=== PATIENT | female | born 1990 | race American Indian/Alaskan Native ===

== ENCOUNTER 2017-01-05 12:59 | Emergency (ER) | payer MEDICAID ==
[2017-01-05 15:07] LABS: Basophils % (Auto) 0.4 % (0.0-1.8); Eosinophils % (Auto) 1.5 % (0.0-4.3); Hematocrit 32.1 % (30.3-42.9); Hemoglobin 10.2 gm/dl (10.1-14.3); Mean Corpuscular HGB Conc 32 % (30-34); Mean Corpuscular Hemoglobin 29 pg (28-32); Mean Corpuscular Volume 90 fl (79-97); Platelet Count 194 K/mm3 (140-440); Red Blood Count 3.56 M/mm3 (3.65-5.03); Red Cell Distribution Width 16.1 % (13.2-15.2); White Blood Count 7.7 K/mm3 (4.5-11.0)
[2017-01-05 15:18] LABS: Alanine Aminotransferase 17 units/L (7-56); Albumin 4.1 g/dL (3.9-5); Albumin/Globulin Ratio 1.5 %; Alkaline Phosphatase 78 units/L (35-129); Anion Gap 15 mmol/L; BUN/Creatinine Ratio 8.75; Blood Urea Nitrogen 7 mg/dL (7-17); Calcium 8.9 mg/dL (8.4-10.2); Carbon Dioxide 24 mmol/L (22-30); Chloride 102.4 mmol/L (98-107); Glucose 85 mg/dL (65-100); Lipase 24 units/L (13-60); Potassium 3.7 mmol/L (3.6-5.0); Sodium 138 mmol/L (137-145); Total Protein 6.9 g/dL (6.3-8.2)
[2017-01-05 15:50] LABS: Bacteria,Urine 1+ /HPF (Negative); Bilirubin,Urine NEG (Negative); Blood,Urine NEG (Negative); Ketones,Urine NEG (Negative); Leukocyte Esterase,Urine NEG (Negative); Mucus,Urine FEW /HPF; Nitrite,Urine NEG (Negative); Protein,Urine <15 mg/dL mg/dL (Negative); Urobilinogen,Urine < 2.0 mg/dL (<2.0); WBC,Urine < 1.0 /HPF (0.0-6.0)
--- NOTE | 2017-01-05 15:57 | Emergency Department Report ---
ED Female HPI - General Chief complaint: Abdominal Pain Stated complaint: LOWER ABD PAIN/DIZZINESS Time Seen by Provider: 01/05/17 15:50 Source: patient Mode of arrival: Ambulatory Limitations: No Limitations - History of Present Illness Initial comments: 26-year-old female past medical history none presents with complaint of crampy lower abdominal pain radiating to the back patient denies any discharge or bleeding state she took home test 2 days ago which was positive. Patient also states she has had some breast soreness in the last week and and morning nausea. Patient is able to tolerate oral fluids but states that by mouth food has been difficult for her to tolerate over the last week. Patient has not had any care and did not know she was . Last menstrual period was 11/23/2016 as per patient MD Complaint: pelvic pain Onset/Timin -: week(s) Severity: moderate Quality: cramping Consistency: constant Improves with: none Are you Now?: Yes Last Menstrual Period: 11/23/16 EDC: 08/30/17 - Related Data Previous Rx's Medication Instructions Recorded Last Taken Type Doxylamine/Pyridoxine HCl 1 each PO QHS PRN #40 tablet. 01/05/17 Unknown Rx [Asa Govea 10-10 mg Tablet] Pnv95/Ferrous Fumarate/FA 1 each PO QDAY #30 tablet 01/05/17 Unknown Rx [ Formula Tablet] metroNIDAZOLE [Flagyl TAB] 500 mg PO Q12HR #14 tab 01/05/17 Unknown Rx Allergies Allergy/AdvReac Type Severity Reaction Status Date / Time acetaminophen [From Vicodin] AdvReac Itching Verified 01/05/17 14:40 codeine AdvReac Hives Verified 01/05/17 14:40 hydrocodone bitartrate AdvReac Itching Verified 01/05/17 14:40 [From Vicodin] latex AdvReac Rash Verified 01/05/17 14:40 ED Review of Systems ROS: Stated complaint: LOWER ABD PAIN/DIZZINESS Other details as noted in HPI Constitutional: denies: chills, fever Eyes: denies: eye pain, eye discharge, vision change ENT: denies: ear pain, throat pain Respiratory: denies: cough, shortness of breath, wheezing Cardiovascular: denies: chest pain, palpitations Endocrine: no symptoms reported Gastrointestinal: nausea, vomiting. denies: abdominal pain, diarrhea Genitourinary: denies: urgency, dysuria, discharge Musculoskeletal: denies: back pain, joint swelling, arthralgia Skin: denies: rash, lesions Neurological: denies: headache, weakness, paresthesias Psychiatric: denies: anxiety, depression Hematological/Lymphatic: denies: easy bleeding, easy bruising ED Past Medical Hx - Past Medical History Previous Medical History?: No - Surgical History Past Surgical History?: Yes Additional Surgical History: - Social History Smoking Status: Current Every Day Smoker Substance Use Type: None - Medications Home Medications: Home Medications Medication Instructions Recorded Confirmed Last Taken Type Doxylamine/Pyridoxine HCl 1 each PO QHS PRN #40 tablet.dr 01/05/17 Unknown Rx [Diclegis Dr 10-10 mg Tablet] Pnv95/Ferrous Fumarate/FA 1 each PO QDAY #30 tablet 01/05/17 Unknown Rx [ Formula Tablet] metroNIDAZOLE [Flagyl TAB] 500 mg PO Q12HR #14 tab 01/05/17 Unknown Rx ED Physical Exam - General Limitations: No Limitations General appearance: alert, in no apparent distress - Head Head exam: Present: atraumatic, normocephalic - Eye Eye exam: Present: normal appearance, PERRL, EOMI - ENT ENT exam: Present: mucous membranes moist - Neck Neck exam: Present: normal inspection - Respiratory Respiratory exam: Present: normal lung sounds bilaterally. Absent: respiratory distress - Cardiovascular Cardiovascular Exam: Present: regular rate, normal rhythm. Absent: systolic murmur, diastolic murmur, rubs, gallop - GI/Abdominal GI/Abdominal exam: Present: soft, normal bowel sounds - External exam: Present: normal external exam Speculum exam: Present: normal speculum exam (there is no vaginal bleeding in the pelvic vault) Bi-manual exam: Present: normal bi-manual exam - Extremities Exam Extremities exam: Present: normal inspection - Back Exam Back exam: Present: normal inspection - Neurological Exam Neurological exam: Present: alert, oriented X3, CN II-XII intact - Psychiatric Psychiatric exam: Present: normal affect, normal mood - Skin Skin exam: Present: warm, dry, intact, normal color. Absent: rash ED Course Vital Signs 01/05/17 01/05/17 14:35 19:09 Temperature 98.6 F Pulse Rate 83 74 Respiratory 16 16 Rate Blood Pressure 112/70 Blood Pressure 112/74 [Left] O2 Sat by Pulse 100 100 Oximetry ED Medical Decision Making - Lab Data Result diagrams: 01/05/17 14:46 01/05/17 14:46 - Medical Decision Making A/P: , morning sickness, possible miscarriage versus early versus ectopic , bacterial vaginosis 1-Pt has NO vaginal bleeding on pelvic exam or reports of vaginal bleeding, ultrasound shows no sonographic evidence of intrauterine at this time , both ovaries visualized, hCG level 1100s 2-patient has minimal to no adnexal or cervical motion pain on exam 3-h/h , no active bleeding, will place pt on vitamins 4- I discussed case with Dr. Angela, senior clinical project manager who is court recording monitor. As per Dr. Angela patient to have repeat ultrasound and hCG level in 48 hours either in office or can come to the emergency room if necessary. I instructed the patient to return to the ED in 48 hours for repeat ultrasound and hCG if she cannot schedule an appointment or follow-up with Dr. Angela in 48 hours. I advised patient that should she develop severe nausea and vomiting fever or chills or vaginal hemorrhage to return to the ED immediately. I also advised to return to the ED if she develops severe sharp abdominal pain with associated heavy bleeding. Patient stated that she understood my instructions clearly and will follow-up with Dr. Angela or come to the ED if she could not schedule an appointment. 5- 1 week course of flagyl Critical care attestation.: If time is entered above; I have spent that time in minutes in the direct care of this critically ill patient, excluding procedure time. 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 I gave patient precautions on ectopic and advised her to return if she develops heavy bleeding with associated sharp pain with fever and chills with associated nausea and vomiting. Prescriptions: Doxylamine/Pyridoxine HCl [Asa Govea 10-10 mg Tablet] 1 each PO QHS PRN #40 tablet. PRN Reason: Nausea metroNIDAZOLE [Flagyl TAB] 500 mg PO Q12HR #14 tab Pnv95/Ferrous Fumarate/FA [ Formula Tablet] 1 each PO QDAY #30 tablet Referrals: NANCY HENRIQUEZ MD [Staff Physician] - 3-5 Days [facility] [Provider Group] - 3-5 Days Forms: Work/School Release Form(ED), STI Treatment and Prevention Time of Disposition: 19:16
[2017-01-05] MEDS ORDERED: BENADRYL PO ONE (16:09)
[2017-01-05] MEDS ORDERED: PEPCID PO ONE (16:10)
--- NOTE | 2017-01-05 18:15 | Ultrasound Report ---
FINAL REPORT EXAM: US TRANSVAGINAL HISTORY: pelvic pain, TECHNIQUE: Ultrasound pelvis obstetrical trans vaginal PRIORS: None. FINDINGS: The uterus measures 9.6 x 4.9 x 5.9 centimeters endometrial stripe is 1.1 centimeters No gestational sac or products of conception identified within the uterus no free fluid seen in the cul-de-sac Right ovary is 4.1 x 2.4 x 3.8 centimeters. A 1.4 centimeter right ovarian cyst is noted Left ovary is 4.8 x 3.9 x 4.1 centimeters. 2.5 centimeter cyst seen within the left ovary No abnormal adnexal mass identified IMPRESSION: No evidence for intrauterine gestation. Could reflect very early IUP and continued followup is recommended. Ovarian cysts noted
--- NOTE | 2017-01-05 18:16 | Ultrasound Report ---
FINAL REPORT EXAM: US OB \T\lt; = 14 WEEKS FETUS HISTORY: pelvic pain, TECHNIQUE: Ultrasound pelvis transabdominal PRIORS: None. FINDINGS: FINDINGS: The uterus measures 9.6 x 4.9 x 5.9 centimeters endometrial stripe is 1.1 centimeters No gestational sac or products of conception identified within the uterus no free fluid seen in the cul-de-sac Right ovary is 4.1 x 2.4 x 3.8 centimeters. A 1.4 centimeter right ovarian cyst is noted Left ovary is 4.8 x 3.9 x 4.1 centimeters. 2.5 centimeter cyst seen within the left ovary No abnormal adnexal mass identified IMPRESSION: No evidence for intrauterine gestation. Could reflect very early IUP and continued followup is recommended. Ovarian cysts noted
[2017-01-05 19:10] VITALS: BP 112/74
== END 2017-01-05 19:37 | disposition home or self-care (01) ==
LOC: ED 12:59
DX: O23.591 Infection of other part of genital tract in pregnancy, first trimester (principal); N76.0 Acute vaginitis; O99.331 Smoking (tobacco) complicating pregnancy, first trimester; Z3A.01 Less than 8 weeks gestation of pregnancy; Z88.6 Allergy status to analgesic agent; Z91.040 Latex allergy status
CPT/HCPCS: 36415; 76801; 76817; 76830; 80053; 81001; 83690; 84702; 84703; 85025; 87210; 87591; 99284

== ENCOUNTER 2017-01-07 11:24 | Emergency (ER) | payer MEDICAID ==
[2017-01-07 14:05] LABS: Basophils % (Auto) 0.5 % (0.0-1.8); Eosinophils % (Auto) 0.8 % (0.0-4.3); Hematocrit 34.8 % (30.3-42.9); Mean Corpuscular HGB Conc 32 % (30-34); Mean Corpuscular Hemoglobin 28 pg (28-32); Mean Corpuscular Volume 89 fl (79-97); Platelet Count 223 K/mm3 (140-440); Red Blood Count 3.91 M/mm3 (3.65-5.03); Red Cell Distribution Width 16.3 % (13.2-15.2); White Blood Count 9.3 K/mm3 (4.5-11.0)
--- NOTE | 2017-01-07 18:18 | Ultrasound Report ---
FINAL REPORT EXAM: US OB TRANSVAGINAL HISTORY: abd pain TECHNIQUE: Ultrasound obstetrical transvaginal PRIORS: Correlation is made to the exam January 05, 2017 FINDINGS: Uterus measures 9.1 x 5.2 x 5.7 centimeters. Endometrial thickness is 0.92 centimeters. No gestational sac identified within the uterus Right ovary is 3.6 x 2.8 x 2.8 centimeters. 1.2 centimeter cyst seen within the right ovary. Left ovary is 4.2 x 2.5 x 3.3 centimeters. There is a 1.5 centimeter left ovarian cyst decreased in size from prior exam. No free fluid identified. IMPRESSION: No intrauterine gestation identified. Differential consideration includes blighted ovum, very early IUP or occult ectopic cannot be excluded. Continued followup suggested.
--- NOTE | 2017-01-07 18:20 | Ultrasound Report ---
FINAL REPORT EXAM: US OB \T\lt; = 14 WEEKS FETUS HISTORY: abd pain TECHNIQUE: PRIORS: Correlation is made to the exam January 05, 2017 FINDINGS: Uterus measures 9.1 x 5.2 x 5.7 centimeters. Endometrial thickness is 0.92 centimeters. No gestational sac identified within the uterus Right ovary is 3.6 x 2.8 x 2.8 centimeters. 1.2 centimeter cyst seen within the right ovary. Left ovary is 4.2 x 2.5 x 3.3 centimeters. There is a 1.5 centimeter left ovarian cyst decreased in size from prior exam. No free fluid identified. IMPRESSION: No intrauterine gestation identified. Differential consideration includes blighted ovum, very early IUP or occult ectopic cannot be excluded. Continued followup suggested.
[2017-01-07 18:30] LABS: Bilirubin,Urine NEG (Negative); Blood,Urine LG (Negative); Ketones,Urine 80 mg/dL (Negative); Leukocyte Esterase,Urine NEG (Negative); Mucus,Urine FEW /HPF; Nitrite,Urine NEG (Negative); Protein,Urine <15 mg/dL mg/dL (Negative); Urobilinogen,Urine < 2.0 mg/dL (<2.0)
--- NOTE | 2017-01-07 19:19 | Emergency Department Report ---
ED Female HPI - General Chief complaint: Abdominal Pain Stated complaint: REPEAT CHECK Time Seen by Provider: 01/07/17 19:08 Source: patient, RN notes reviewed, old records reviewed Mode of arrival: Ambulatory Limitations: No Limitations - History of Present Illness Initial comments: This is a 26-year-old female. She is previously unknown to me. She is 4, para 2. Last menstrual period is November 24 through November 30. The patient was seen in the ER 2 days ago with abdominal cramping, and was found to be . Patient had an ultrasound at that time was not demonstrated intrauterine . She was presumptively diagnosed with nausea and vomiting of versus hyperemesis. Quantitative hCG at that time was 1100. The patient reports at that evening she began to develop scant vaginal bleeding with left lower quadrant discomfort. The bleeding is less than 2 pads soaked per hour. She is still persistently bleeding. No fevers or chills. No chest pain or shortness of breath. No irritative or obstructive urinary symptoms. The patient denies heavy lifting and trauma. MD Complaint: vaginal bleeding -: Gradual Location: LLQ Severity: mild Quality: cramping Consistency: intermittent Improves with: other (pain increases with palpation, decreases with rest.) Are you Now?: Yes Associated Symptoms: vaginal bleeding. denies: vaginal discharge, nausea/ vomiting, fever/chills, headaches, loss of appetite, dysuria, hematuria, rash, shortness of breath, syncope, weakness - Related Data Sexually active: Yes Previous Rx's Medication Instructions Recorded Last Taken Type Doxylamine/Pyridoxine HCl 1 each PO QHS PRN #40 tablet. 01/05/17 Unknown Rx [Asa Govea 10-10 mg Tablet] Pnv95/Ferrous Fumarate/FA 1 each PO QDAY #30 tablet 01/05/17 Unknown Rx [ Formula Tablet] metroNIDAZOLE [Flagyl TAB] 500 mg PO Q12HR #14 tab 01/05/17 Unknown Rx Allergies Allergy/AdvReac Type Severity Reaction Status Date / Time acetaminophen [From Vicodin] AdvReac Itching Verified 01/05/17 14:40 codeine AdvReac Hives Verified 01/05/17 14:40 hydrocodone bitartrate AdvReac Itching Verified 01/05/17 14:40 [From Vicodin] latex AdvReac Rash Verified 01/05/17 14:40 ED Review of Systems ROS: Stated complaint: REPEAT CHECK Other details as noted in HPI Constitutional: denies: malaise Eyes: denies: vision change ENT: denies: epistaxis Respiratory: denies: cough Cardiovascular: denies: chest pain Gastrointestinal: abdominal pain Genitourinary: as per HPI, abnormal menses. denies: dysuria Musculoskeletal: denies: back pain Skin: denies: lesions Neurological: as per HPI ED Past Medical Hx - Past Medical History Previous Medical History?: No Hx Hypertension: No Hx CVA: No Hx Heart Attack/AMI: No Hx Congestive Heart Failure: No Hx Diabetes: No Hx Deep Vein Thrombosis: No Hx Pulmonary Embolism: No Hx GERD: Yes Hx Liver Disease: No Hx Renal Disease: No Hx of Cancer: No Hx Sickle Cell Disease: No Hx Arthritis: No Hx Headaches / Migraines: No Hx Seizures: No Hx Kidney Stones: No Hx Psychiatric Treatment: Yes (bi polar) Hx Asthma: Yes Hx COPD: No Hx Tuberculosis: No Hx Dementia: No Hx HIV: No - Surgical History Past Surgical History?: Yes Hx Coronary Stent: No Hx Open Heart Surgery: No Hx Pacemaker: No Hx Internal Defibrillator: No Hx Cholecystectomy: No Hx Appendectomy: No Hx Breast Surgery: No Additional Surgical History: - Social History Smoking Status: Current Some Day Smoker Substance Use Type: Marijuana - Medications Home Medications: Home Medications Medication Instructions Recorded Confirmed Last Taken Type Doxylamine/Pyridoxine HCl 1 each PO QHS PRN #40 tablet. 01/05/17 Unknown Rx [Diclegis Dr 10-10 mg Tablet] Pnv95/Ferrous Fumarate/FA 1 each PO QDAY #30 tablet 01/05/17 Unknown Rx [ Formula Tablet] metroNIDAZOLE [Flagyl TAB] 500 mg PO Q12HR #14 tab 01/05/17 Unknown Rx ED Physical Exam - General Limitations: No Limitations General appearance: alert, in no apparent distress - Head Head exam: Present: atraumatic, normocephalic - Eye Eye exam: Present: normal appearance, EOMI. Absent: nystagmus - ENT ENT exam: Present: normal exam, normal orophraynx, mucous membranes moist, normal external ear exam - Neck Neck exam: Present: normal inspection, full ROM. Absent: tenderness, meningismus - Respiratory Respiratory exam: Present: normal lung sounds bilaterally. Absent: respiratory distress, wheezes, rales, rhonchi, stridor, chest wall tenderness, accessory muscle use, decreased breath sounds, prolonged expiratory - Cardiovascular Cardiovascular Exam: Present: regular rate, normal rhythm, normal heart sounds. Absent: bradycardia, tachycardia, irregular rhythm, systolic murmur, diastolic murmur, rubs, gallop - GI/Abdominal GI/Abdominal exam: Present: soft, normal bowel sounds. Absent: distended, tenderness, guarding, rebound, rigid, pulsatile mass - External exam: Present: normal external exam Speculum exam: Present: vaginal bleeding Bi-manual exam: Present: normal bi-manual exam, other (during gynecologic examination, I am escorted by ER husbandry technician Herman). Absent: cervical motion tendernes, adnexal tenderness, adnexal mass - Extremities Exam Extremities exam: Present: normal inspection, full ROM, normal capillary refill. Absent: tenderness, pedal edema, joint swelling, calf tenderness - Back Exam Back exam: Present: normal inspection, full ROM. Absent: tenderness, CVA tenderness (R), CVA tenderness (L), muscle spasm, paraspinal tenderness, vertebral tenderness - Neurological Exam Neurological exam: Present: alert, oriented X3, normal gait, other (Extraocular movements intact. Tongue midline. No facial droop. Facial sensation intact to light touch in the V1, V2, V3 distribution bilaterally. 5 and 5 strength in 4 extremities.. Sensation is intact to light touch in 4 extremities.). Absent : motor sensory deficit - Psychiatric Psychiatric exam: Present: normal affect, normal mood - Skin Skin exam: Present: warm, dry, intact, normal color. Absent: rash ED Course Vital Signs 01/07/17 01/07/17 01/07/17 12:12 17:30 18:00 Temperature 98.4 F 98.1 F Pulse Rate 80 60 Respiratory 12 18 18 Rate Blood Pressure 110/57 Blood Pressure 110/57 112/60 [Right] O2 Sat by Pulse 100 100 98 Oximetry 01/07/17 20:37 Temperature Pulse Rate 71 Respiratory 16 Rate Blood Pressure Blood Pressure 109/79 [Right] O2 Sat by Pulse 99 Oximetry ED Medical Decision Making - Lab Data Result diagrams: 01/07/17 13:29 Vital Signs 01/07/17 01/07/17 01/07/17 12:12 17:30 18:00 Temperature 98.4 F 98.1 F Pulse Rate 80 60 Respiratory 12 18 18 Rate Blood Pressure 110/57 Blood Pressure 110/57 112/60 [Right] O2 Sat by Pulse 100 100 98 Oximetry Lab Results 01/07/17 01/07/17 01/07/17 Range/Units 13:29 13:29 16:33 WBC 9.3 (4.5-11.0) K/mm3 RBC 3.91 (3.65-5.03) M/mm3 Hgb 11.0 (10.1-14.3) gm/dl Hct 34.8 (30.3-42.9) % MCV 89 (79-97) fl MCH 28 (28-32) pg MCHC 32 (30-34) % RDW 16.3 H (13.2-15.2) % Plt Count 223 (140-440) K/mm3 Lymph % (Auto) 16.2 (13.4-35.0) % [place] % (Auto) 7.6 H (0.0-7.3) % Eos % (Auto) 0.8 (0.0-4.3) % Baso % (Auto) 0.5 (0.0-1.8) % Lymph # 1.5 (1.2-5.4) K/mm3 [place] # 0.7 (0.0-0.8) K/mm3 Eos # 0.1 (0.0-0.4) K/mm3 Baso # 0.0 (0.0-0.1) K/mm3 Seg Neutrophils % 74.9 H (40.0-70.0) % Seg Neutrophils # 7.0 (1.8-7.7) K/mm3 HCG, Quant 371.9 H 382.8 H (0-4) mIU/mL Urine Color (Yellow) Urine Turbidity (Clear) Urine pH (5.0-7.0) Ur Specific [place] (1.003-1.030) Urine Protein (Negative) mg/dL Urine Glucose (UA) (Negative) mg/dL Urine Ketones (Negative) mg/dL Urine Blood (Negative) Urine Nitrite (Negative) Urine Bilirubin (Negative) Urine Urobilinogen (<2.0) mg/dL Ur Leukocyte Esterase (Negative) Urine WBC (Auto) (0.0-6.0) /HPF Urine RBC (Auto) (0.0-6.0) /HPF U Epithel Cells (Auto) (0-13.0) /HPF Urine Mucus /HPF Blood Type Antibody Screen RBEE Antibody Screen 01/07/17 01/07/17 Range/Units 18:00 19:17 WBC (4.5-11.0) K/mm3 RBC (3.65-5.03) M/mm3 Hgb (10.1-14.3) gm/dl Hct (30.3-42.9) % MCV (79-97) fl MCH (28-32) pg MCHC (30-34) % RDW (13.2-15.2) % Plt Count (140-440) K/mm3 Lymph % (Auto) (13.4-35.0) % [place] % (Auto) (0.0-7.3) % Eos % (Auto) (0.0-4.3) % Baso % (Auto) (0.0-1.8) % Lymph # (1.2-5.4) K/mm3 [place] # (0.0-0.8) K/mm3 Eos # (0.0-0.4) K/mm3 Baso # (0.0-0.1) K/mm3 Seg Neutrophils % (40.0-70.0) % Seg Neutrophils # (1.8-7.7) K/mm3 HCG, Quant (0-4) mIU/mL Urine Color Yellow (Yellow) Urine Turbidity Clear (Clear) Urine pH 7.0 (5.0-7.0) Ur Specific [place] 1.013 (1.003-1.030) Urine Protein <15 mg/dl (Negative) mg/dL Urine Glucose (UA) Neg (Negative) mg/dL Urine Ketones 80 (Negative) mg/dL Urine Blood Lg (Negative) Urine Nitrite Neg (Negative) Urine Bilirubin Neg (Negative) Urine Urobilinogen < 2.0 (<2.0) mg/dL Ur Leukocyte Esterase Neg (Negative) Urine WBC (Auto) 1.0 (0.0-6.0) /HPF Urine RBC (Auto) 4.0 (0.0-6.0) /HPF U Epithel Cells (Auto) 9.0 (0-13.0) /HPF Urine Mucus Few /HPF Blood Type B POSITIVE Antibody Screen TNR BREE Antibody Screen Negative - Radiology Data Radiology results: report reviewed, image reviewed Transvaginal/obstetrics ultrasound demonstrates no evidence of intrauterine . There is a 1.5 cm left ovarian cyst. There is no gestational sac. - Medical Decision Making Differential diagnosis: Miscarriage, , ectopic Assessment and plan: 26-year-old female with left lower quadrant abdominal discomfort, vaginal bleeding, no injury from identified on ultrasound today, or 2 days ago. Quantitative hCG appears to be decreasing appropriately. She is afebrile with reassuring vital signs, with no rebound, guarding or peritoneal signs. The patient is reliable. She is Rh+. The patient is instructed to rest and avoid heavy lifting, and she is instructed to abstain from sexual activity. Highly doubt ectopic at this time given the aforementioned. The patient is instructed to return in 48 hours for repeat quantitative hCG, the patient appears to be reliable. She will be discharged at this time, return precautions are reviewed. Critical care attestation.: If time is entered above; I have spent that time in minutes in the direct care of this critically ill patient, excluding procedure time. ED Disposition Clinical Impression: Miscarriage Disposition: DC-01 TO HOME OR SELFCARE Is pt being admited?: No Does the pt Need Aspirin: No Condition: Stable Instructions: Ectopic (ED), Threatened Miscarriage (ED) Additional Instructions: Rest and avoid heavy lifting. Avoid strenuous physical activity. Continue current outpatient medications. Follow up in 48 hours for repeat quantitative hCG/blood test. Do not engage in sexual activity. Follow-up with an [facility] doctor within the next week. Return to the ER right away with new pain, worsening pain, migration of pain, loss of consciousness, confusion, bleeding more than 2 pads soaked through and through per hour. Right now, the patient is either experiencing a miscarriage, or a ectopic . However, based on the current laboratory studies and ultrasound results, the definitive diagnosis is unknown, so it is very important that the patient return in 2 days for follow-up as directed. Referrals: PRIMARY CARE, [Primary Care Provider] - 3-5 Days NANCY HENRIQUEZ MD [Staff Physician] - 3-5 Days
[2017-01-07 20:38] VITALS: BP 109/79
== END 2017-01-07 20:38 | disposition home or self-care (01) ==
LOC: ED 11:24
DX: O03.9 Complete or unspecified spontaneous abortion without complication (principal); O99.330 Smoking (tobacco) complicating pregnancy, unspecified trimester; O99.619 Diseases of the digestive system complicating pregnancy, unspecified trimester; O99.519 Diseases of the respiratory system complicating pregnancy, unspecified trimester; K21.9 Gastro-esophageal reflux disease without esophagitis; J45.909 Unspecified asthma, uncomplicated; F31.9 Bipolar disorder, unspecified; F12.10 Cannabis abuse, uncomplicated; Z3A.00 Weeks of gestation of pregnancy not specified; Z88.8 Allergy status to other drugs, medicaments and biological substances; Z88.6 Allergy status to analgesic agent; Z91.040 Latex allergy status
CPT/HCPCS: 36415; 76801; 76817; 81001; 84702; 85025; 86850; 86900; 86901; 99284

== ENCOUNTER 2017-01-21 07:09 | Emergency (ER) | payer MEDICAID ==
[2017-01-21 08:33] LABS: Basophils % (Auto) 0.5 % (0.0-1.8); Eosinophils % (Auto) 2.1 % (0.0-4.3); Hematocrit 37.6 % (30.3-42.9); Mean Corpuscular HGB Conc 32 % (30-34); Mean Corpuscular Hemoglobin 29 pg (28-32); Mean Corpuscular Volume 91 fl (79-97); Platelet Count 241 K/mm3 (140-440); Red Blood Count 4.12 M/mm3 (3.65-5.03); Red Cell Distribution Width 17.9 % (13.2-15.2); White Blood Count 7.8 K/mm3 (4.5-11.0)
[2017-01-21 09:16] LABS: Bacteria,Urine 1+ /HPF (Negative); Bilirubin,Urine NEG (Negative); Blood,Urine LG (Negative); Ketones,Urine NEG (Negative); Leukocyte Esterase,Urine NEG (Negative); Mucus,Urine FEW /HPF; Nitrite,Urine NEG (Negative); Protein,Urine <15 mg/dL mg/dL (Negative); Urobilinogen,Urine < 2.0 mg/dL (<2.0)
--- NOTE | 2017-01-21 11:08 | Emergency Department Report ---
ED Female HPI - General Chief complaint: Vaginal Bleeding Stated complaint: VAGINAL BLEEDING/LIGHTHEADED Time Seen by Provider: 01/21/17 10:43 Source: patient Mode of arrival: Ambulatory Limitations: No Limitations - History of Present Illness Initial comments: 26-year-old female here with complaint of increasing vaginal bleeding and back pain. She's states that she's had increasing clots in the course of the last day. Denies fevers chills nausea vomiting. States that she was diagnosed with a on January 05 however no intrauterine was noted on ultrasound. She will return for repeat ultrasound and was having decreasing quadrants and no IUP on January 07. Since that time she's continued to bleed. Complaint: vaginal bleeding -: week(s) (2) Radiation: L flank, R flank Quality: cramping Consistency: constant Improves with: none Worsens with: none Are you Now?: No (unsure) - Related Data Previous Rx's Medication Instructions Recorded Last Taken Type Doxylamine/Pyridoxine HCl 1 each PO QHS PRN #40 tablet. 01/05/17 Unknown Rx [Asa Govea 10-10 mg Tablet] Pnv95/Ferrous Fumarate/FA 1 each PO QDAY #30 tablet 01/05/17 Unknown Rx [ Formula Tablet] metroNIDAZOLE [Flagyl TAB] 500 mg PO Q12HR #14 tab 01/05/17 Unknown Rx Ibuprofen [Motrin] 600 mg PO Q8H PRN #30 tablet 01/21/17 Unknown Rx Sulfamethoxazole/Trimethoprim 1 each PO BID #6 tablet 01/21/17 Unknown Rx [Bactrim DS TAB] Allergies Allergy/AdvReac Type Severity Reaction Status Date / Time acetaminophen [From Vicodin] AdvReac Itching Verified 01/21/17 08:00 codeine AdvReac Hives Verified 01/21/17 08:00 hydrocodone bitartrate AdvReac Itching Verified 01/21/17 08:00 [From Vicodin] latex AdvReac Rash Verified 01/21/17 08:00 ED Review of Systems ROS: Stated complaint: VAGINAL BLEEDING/LIGHTHEADED Other details as noted in HPI Comment: All other systems reviewed and negative Constitutional: denies: chills, fever Eyes: denies: eye pain, eye discharge, vision change ENT: denies: ear pain, throat pain Respiratory: denies: cough, shortness of breath, wheezing Cardiovascular: denies: chest pain, palpitations Endocrine: no symptoms reported Gastrointestinal: denies: abdominal pain, nausea, diarrhea Genitourinary: as per HPI, urgency. denies: dysuria, discharge Musculoskeletal: denies: back pain, joint swelling, arthralgia Skin: denies: rash, lesions Neurological: denies: headache, weakness, paresthesias Psychiatric: denies: anxiety, depression Hematological/Lymphatic: denies: easy bleeding, easy bruising ED Past Medical Hx - Past Medical History Hx Hypertension: No Hx CVA: No Hx Heart Attack/AMI: No Hx Congestive Heart Failure: No Hx Diabetes: No Hx Deep Vein Thrombosis: No Hx Pulmonary Embolism: No Hx GERD: Yes Hx Liver Disease: No Hx Renal Disease: No Hx Sickle Cell Disease: No Hx Arthritis: No Hx Headaches / Migraines: No Hx Seizures: No Hx Kidney Stones: No Hx Psychiatric Treatment: Yes (bi polar) Hx Asthma: Yes Hx COPD: No Hx Tuberculosis: No Hx Dementia: No Hx HIV: No - Surgical History Hx Coronary Stent: No Hx Open Heart Surgery: No Hx Pacemaker: No Hx Internal Defibrillator: No Hx Cholecystectomy: No Hx Appendectomy: No Hx Breast Surgery: No Additional Surgical History: - Social History Smoking Status: Current Every Day Smoker Substance Use Type: None - Medications Home Medications: Home Medications Medication Instructions Recorded Confirmed Last Taken Type Doxylamine/Pyridoxine HCl 1 each PO QHS PRN #40 tablet. 01/05/17 Unknown Rx [Diclegis Dr 10-10 mg Tablet] Pnv95/Ferrous Fumarate/FA 1 each PO QDAY #30 tablet 01/05/17 Unknown Rx [ Formula Tablet] metroNIDAZOLE [Flagyl TAB] 500 mg PO Q12HR #14 tab 01/05/17 Unknown Rx Ibuprofen [Motrin] 600 mg PO Q8H PRN #30 tablet 01/21/17 Unknown Rx Sulfamethoxazole/Trimethoprim 1 each PO BID #6 tablet 01/21/17 Unknown Rx [Bactrim DS TAB] ED Physical Exam - General Limitations: No Limitations General appearance: alert, in no apparent distress - Head Head exam: Present: atraumatic, normocephalic - Eye Eye exam: Present: normal appearance - ENT ENT exam: Present: mucous membranes moist - Neck Neck exam: Present: normal inspection - Respiratory Respiratory exam: Present: normal lung sounds bilaterally. Absent: respiratory distress - Cardiovascular Cardiovascular Exam: Present: regular rate, normal rhythm. Absent: systolic murmur, diastolic murmur, rubs, gallop - GI/Abdominal GI/Abdominal exam: Present: soft, normal bowel sounds - Extremities Exam Extremities exam: Present: normal inspection - Back Exam Back exam: Present: normal inspection, CVA tenderness (R), CVA tenderness (L) - Neurological Exam Neurological exam: Present: alert, oriented X3 - Psychiatric Psychiatric exam: Present: normal affect, normal mood - Skin Skin exam: Present: warm, dry, intact, normal color. Absent: rash ED Course Vital Signs 01/21/17 01/21/17 01/21/17 08:01 10:00 10:02 Temperature 98.4 F Pulse Rate 97 H Respiratory 18 Rate Blood Pressure 122/86 132/76 O2 Sat by Pulse 100 100 100 Oximetry 01/21/17 01/21/17 01/21/17 10:05 10:07 10:16 Temperature Pulse Rate Respiratory 18 Rate Blood Pressure 132/76 132/76 O2 Sat by Pulse 100 100 100 Oximetry ED Medical Decision Making - Lab Data Result diagrams: 01/21/17 08:13 Laboratory Results - last 24 hr 01/21/17 01/21/17 01/21/17 08:13 08:13 08:13 WBC 7.8 RBC 4.12 Hgb 12.0 Hct 37.6 MCV 91 MCH 29 MCHC 32 RDW 17.9 H Plt Count 241 Lymph % (Auto) 21.2 [place] % (Auto) 7.6 H Eos % (Auto) 2.1 Baso % (Auto) 0.5 Lymph # 1.7 [place] # 0.6 Eos # 0.2 Baso # 0.0 Seg Neutrophils % 68.6 Seg Neutrophils # 5.4 HCG, Qual Negative HCG, Quant 2.67 Urine Color Urine Turbidity Urine pH Ur Specific [place] Urine Protein Urine Glucose (UA) Urine Ketones Urine Blood Urine Nitrite Urine Bilirubin Urine Urobilinogen Ur Leukocyte Esterase Urine WBC (Auto) Urine RBC (Auto) U Epithel Cells (Auto) Urine Bacteria (Auto) Urine Mucus Blood Type Antibody Screen BREE Antibody Screen 01/21/17 01/21/17 08:13 08:58 WBC RBC Hgb Hct MCV MCH MCHC RDW Plt Count Lymph % (Auto) [place] % (Auto) Eos % (Auto) Baso % (Auto) Lymph # [place] # Eos # Baso # Seg Neutrophils % Seg Neutrophils # HCG, Qual HCG, Quant Urine Color Yellow Urine Turbidity Clear Urine pH 5.0 Ur Specific [place] 1.016 Urine Protein <15 mg/dl Urine Glucose (UA) Neg Urine Ketones Neg Urine Blood Lg Urine Nitrite Neg Urine Bilirubin Neg Urine Urobilinogen < 2.0 Ur Leukocyte Esterase Neg Urine WBC (Auto) 1.0 Urine RBC (Auto) 123.0 U Epithel Cells (Auto) 1.0 Urine Bacteria (Auto) 1+ Urine Mucus Few Blood Type B POSITIVE Antibody Screen TNR BREE Antibody Screen Negative - Medical Decision Making 26-year-old female here with complaint increasing back pain and increasing vaginal bleeding. She was recently diagnosed with a that had appeared to be resolving. Ultrasounds on the and did not show any intrauterine . She is continued to bleed since that time. Her beta hCG was 1100 on 01/05 and 300 on 01/07. Today it is less than 3. She likely has had a complete or incomplete miscarriage. Plan to ultrasound and will reassess. Repeat ultrasound is negative she has no ovarian cysts. She does not need a RhoGAM injection. Plan to treat for possible UTI and we will discharge her with NSAIDs. Patient has a planned follow-up with a sr community manager on Thursday. She asked to defer pelvic exam. Portions of this chart were dictated with dictation software. There may be dictation errors contained within this note. Critical care attestation.: If time is entered above; I have spent that time in minutes in the direct care of this critically ill patient, excluding procedure time. ED Disposition Clinical Impression: UTI (urinary tract infection), Miscarriage Disposition: - TO HOME OR SELFCARE Is pt being admited?: No Condition: Stable Instructions: Urinary Tract Infection in Women (ED), Spontaneous Miscarriage ( ED) Additional Instructions: Follow-up with sr community manager. Prescriptions: Ibuprofen [Motrin] 600 mg PO Q8H PRN #30 tablet PRN Reason: Pain Sulfamethoxazole/Trimethoprim [Bactrim DS TAB] 1 each PO BID #6 tablet Referrals: PRIMARY CARE, [Primary Care Provider] - 3-5 Days
[2017-01-21] MEDS: TORADOL IM ONE (11:15)
--- NOTE | 2017-01-21 12:32 | Ultrasound Report ---
ULTRASOUND PELVIS COMPLETE - TRANSABDOMINAL AND TRANSVAGINAL: INDICATION: Vaginal bleeding. COMPARISON: 01/07/2017 FINDINGS: Transabdominal and transvaginal pelvic sonography performed in this patient with LMP of 11/24/2016 demonstrates a homogenous, anteverted, 7.9 x 3.7 x 4.0 cm uterus. Endometrial thickness estimated at 4 mm. Minimal pelvic free fluid. Normal bilateral ovaries, estimated at 3.9 x 2.2 x 2.9 cm on the right and 3.8 x 2.6 x 2.9 cm on the left. CONCLUSION: Physiologic pelvic sonogram in this patient with decreasing serum beta hCG values, as described. Thank you for the opportunity to participate in this patient's care.
[2017-01-21 14:01] VITALS: BP 116/72
== END 2017-01-21 14:02 | disposition home or self-care (01) ==
LOC: ED 07:09
DX: O03.88 Urinary tract infection following complete or unspecified spontaneous abortion (principal); N39.0 Urinary tract infection, site not specified; K21.9 Gastro-esophageal reflux disease without esophagitis; J45.909 Unspecified asthma, uncomplicated; F17.210 Nicotine dependence, cigarettes, uncomplicated; Z3A.00 Weeks of gestation of pregnancy not specified; Z88.8 Allergy status to other drugs, medicaments and biological substances; Z88.6 Allergy status to analgesic agent; Z91.040 Latex allergy status
CPT/HCPCS: 36415; 76830; 76856; 81001; 84702; 84703; 85025; 86850; 86900; 86901; 96372; 99284; J1885